=== PATIENT | female | born 1965 | race Caucasian/White ===

== ENCOUNTER 2019-02-27 11:02 | Inpatient (IN) | payer MEDICAID, OTHER ==
[~2019-02-27] VITALS: Ht 149.9 cm; Wt 90.5 kg
[2019-02-27 11:41] LABS: Urine Bacteria NONE SEEN /hpf (None Seen); Urine Blood 2+ /uL (Negative); Urine Budding Yeast OCCASIONAL /hpf (None Seen); Urine Specific Gravity 1.036 (1.001-1.035); Urine WBC 12 /hpf (0 - 5)
[2019-02-27] MEDS ORDERED: SODIUM CHLORIDE 0.9% 1,000 ML IVB ONE (14:12)
[2019-02-27] MEDS ORDERED: KETOROLAC TROMETH 30 MG/ML 1ML VIAL IV ONE (14:15)
[2019-02-27] MEDS ORDERED: ONDANSETRON HCL 4 MG/2 ML VIAL IV ONE (14:15)
[2019-02-27] MEDS ORDERED: MORPHINE SULFATE 4 MG/ML SYR/VIAL IV ONE (14:15)
[2019-02-27 15:16] LABS: Basophils # (auto) 0 uL; Basophils % (auto) 0.2 % (0.0-2.0); Eosinophils # (auto) 0.1 uL; Eosinophils % (auto) 0.5 % (0.0-7.0); Hematocrit 40.4 % (36.0-46.0); Hemoglobin 13.5 g/dL (12.2-16.2); Lymphocytes # (auto) 1.9 uL; Mean Corpuscular Hemoglobin 30.6 pg (28.0-32.0); Mean Corpuscular Hgb Conc. 33.4 g/dL (32.0-36.0); Mean Corpuscular Volume 91.8 fL (80.0-100.0); Monocytes # (auto) 0.8 uL; Neutrophils % (auto) 76.3 % (37.0-80.0); Nucleated Red Blood Cells % 0.2 %; Platelet Count (auto) 270 10^3/uL (140-450); Red Blood Cells 4.41 10^6/uL (4.0-5.20); Red Cell Distribution Width 14.9 % (11.8-14.3); White Blood Cell 11.7 10^3/uL (4.4-10.8)
[2019-02-27 15:17] LABS: Albumin 3.5 g/dL (3.4-5.0); Calcium 8.6 mg/dL (8.5-10.1); Potassium 4.2 mmol/L (3.5-5.1)
[2019-02-27 15:21] LABS: BUN/Creatinine Ratio 19.8; Bilirubin, Total 0.7 mg/dL (0.2-1.0); Total Protein 7.6 g/dL (6.4-8.2)
[2019-02-27] MEDS ORDERED: ACETAMINOPHEN 500 MG TAB PO PRN (16:30)
[2019-02-27] MEDS ORDERED: ONDANSETRON HCL 4 MG/2 ML VIAL IV PRN (16:30)
[2019-02-27] MEDS ORDERED: MORPHINE SULF INJ 2 MG/ML SYRINGE 1ML IV PRN (16:30)
[2019-02-27] MEDS ORDERED: NITROGLYCERIN 0.4 MG SL TAB SL PRN (16:30)
[2019-02-27] MEDS: MORPHINE SULF INJ 2 MG/ML SYRINGE 1ML IV PRN ×2 (16:36→20:30)
[2019-02-27] MEDS: SODIUM CHLORIDE 0.9% 1,000 ML IV SCH ×2 (16:41→18:47)
--- NOTE | 2019-02-27 17:30 | NUR ---
Telemetry admit from ER [facility] admitted to Telemetry unit after report received from TRIPP Sanz. Patient oriented to MARIJA ROBERTSON RN primary RN, unit, room, bed, and unit policies regarding patient care and visiting hours. Patient now on continuous telemetry monitoring, tele box # [id number]. Patient weighed by bedscale and encouraged to call if they need something. All questions and concerns addressed, patient verbalized understanding.
[2019-02-27 17:59] VITALS: BP 134/84
[2019-02-27] MEDS: TAMSULOSIN HYDROCHLORIDE 0.4 MG CAP PO SCH (18:47)
--- NOTE | 2019-02-27 18:56 | NUR ---
Closing Shift Note Patient is resting in bed with eyes closed. No distress noted. Will give report and endorse care to the metal burrer RN.
[2019-02-27] MEDS ORDERED: CLOP75TA28 PO (19:04)
[2019-02-27] MEDS ORDERED: ASPI-231 PO (19:04)
[2019-02-27] MEDS ORDERED: CARV3.1240 PO (19:04)
--- NOTE | 2019-02-27 19:50 | NUR ---
Opening Shift Note Assumed care of patient, lying in bed, awake and alert, oriented x 4, clear speech, follows direction. On room air with even and unlabored respirations, no S/S of distress or SOB. Patient reports LBM "5 days ago." Patient denies any problems voiding no burning, reports hematuria. IV to right AC 20g intact and patent, infusing NS 0.9% at 125mL/hr. Patient independently turns in bed ambulates with steady gait. Bed is in low low locked position with side rails up x 2 and call light within reach. Instructed on POC and to call for assist PRN, will continue to monitor for changes Q1hr and PRN.
--- NOTE | 2019-02-27 20:00 | NUR ---
Paged Jose SUNSHINE RE: LBM patient reports LBM 5 days ago. Awaiting call back, will continue care.
--- NOTE | 2019-02-27 20:13 | NUR ---
Received call back from Jose SUNSHINE Updated on patient status. New order received, read back and verified order, will carry out and continue care.
[2019-02-27] MEDS: CARVEDILOL 3.125 MG TAB PO SCH (20:28)
[2019-02-27] MEDS: ATORVASTATIN 20 MG TAB PO SCH (20:28)
[2019-02-27 22:00] VITALS: BP 138/85
[2019-02-28] MEDS: MORPHINE SULF INJ 2 MG/ML SYRINGE 1ML IV PRN ×2 (04:09→16:16)
[2019-02-28 05:30] VITALS: BP 153/88
[2019-02-28 06:30] LABS: Basophils # (auto) 0 uL; Basophils % (auto) 0.3 % (0.0-2.0); Eosinophils # (auto) 0 uL; Eosinophils % (auto) 0.6 % (0.0-7.0); Hematocrit 35.6 % (36.0-46.0); Lymphocytes # (auto) 1.8 uL; Lymphocytes % (auto) 27.2 % (10.0-50.0); Mean Corpuscular Hemoglobin 31.1 pg (28.0-32.0); Mean Corpuscular Hgb Conc. 33.6 g/dL (32.0-36.0); Mean Corpuscular Volume 92.5 fL (80.0-100.0); Monocytes # (auto) 0.5 uL; Monocytes % (auto) 6.7 % (0.0-12.0); Neutrophils # (auto) 4.4 uL; Neutrophils % (auto) 65.2 % (37.0-80.0); Nucleated Red Blood Cells % 0.1 %; Platelet Count (auto) 239 10^3/uL (140-450); Potassium 4.2 mmol/L (3.5-5.1); Red Blood Cells 3.85 10^6/uL (4.0-5.20); Red Cell Distribution Width 15.4 % (11.8-14.3); White Blood Cell 6.8 10^3/uL (4.4-10.8)
[2019-02-28 06:33] LABS: Cholesterol 458 mg/dL (< 200); HDL Cholesterol 37 mg/dL (40-59); Triglycerides 856 mg/dL (< 150)
--- NOTE | 2019-02-28 06:54 | NUR ---
Closing Note patient awake resting in bed on room air with even and unlabored respirations, no s/s of distress. IV intact and patent infusing NS at 125mL/hr. Bed low locked position with side rails up x 2 and call light within reach.
--- NOTE | 2019-02-28 07:30 | NUR ---
Opening Shift Note Assuming care of patient at this time. Patient is awake and alert. Patient is complaining of pain. Will medicate per doctor's orders. Patient shows no signs or symptoms of distress or shortness of breath. Bed is locked and lowered with side rails up x2. Instructed patient on the plan of care for today and to call for assistance as needed. Call light within reach. Will continue to round hourly and as needed.
[2019-02-28 09:00] VITALS: BP 145/86
[2019-02-28] MEDS: SODIUM CHLORIDE 0.9% 1,000 ML IV SCH ×2 (10:35→16:16)
[2019-02-28] MEDS: cefTRIAXone 1GM/50ML D5W 50 ML IV SCH (10:35)
[2019-02-28] MEDS: CLOPIDOGREL BISULFATE 75 MG TAB PO SCH (10:36)
[2019-02-28] MEDS: DOCUSATE SOD 100 MG CAP PO SCH ×2 (10:36→21:50)
[2019-02-28] MEDS: ASPirin 81 mg TAB PO SCH (10:36)
[2019-02-28] MEDS: FAMOTIDINE 20 MG TAB PO SCH (10:36)
[2019-02-28] MEDS: CARVEDILOL 3.125 MG TAB PO SCH ×2 (10:37→21:50)
[2019-02-28 13:00] VITALS: BP 120/66
[2019-02-28] MEDS ORDERED: MANNITOL FTV 25% 12.5 GM/50 ML 50 ML IV ONE (13:45)
[2019-02-28 17:00] VITALS: BP 141/69
[2019-02-28] MEDS: TAMSULOSIN HYDROCHLORIDE 0.4 MG CAP PO SCH (18:19)
[2019-02-28] MEDS: HYDROcodone-ACET 5/325MG TAB PO PRN (18:19)
--- NOTE | 2019-02-28 18:22 | NUR ---
Re: Urine Strain/Output Patient has had 300 ml of urine out since straining order. Urine has been strained. No stones noted at this time.
--- NOTE | 2019-02-28 19:25 | NUR ---
Pain Patient has been complaining of pain unrelieved by morphine and norco, 02/23 to abdomen and back area. Notified JONG Benjamin. New orders given. Will input and carryout.
--- NOTE | 2019-02-28 19:27 | NUR ---
Closing Shift Note Patient resting in be, complaining of pain 02/23. New order for pain medication needs to be verified. shift superintendent RN aware. Will endorse care.
--- NOTE | 2019-02-28 19:40 | NUR ---
Opening Shift Note Assumed care of patient, lying in bed, awake and alert, oriented x 4, clear speech, follows direction. On room air with even and unlabored respirations, no S/S of distress or SOB. Patient denies any problems voiding no burning. IV to right AC 20g intact and patent, infusing NS 0.9% at 125mL/hr. Patient independently turns in bed ambulates with steady gait. Bed is in low low locked position with side rails up x 2 and call light within reach. Instructed on POC to strain all urine, patient verbalized understanding. Instructed to call for assist PRN, will continue to monitor for changes Q1hr and PRN.
[2019-02-28] MEDS: HYDROmorphone HCL 2 MG/ML VL IV PRN (19:44)
[2019-02-28] MEDS: ATORVASTATIN 20 MG TAB PO SCH (21:50)
[2019-02-28 22:00] VITALS: BP 120/70
[2019-03-01] MEDS: SODIUM CHLORIDE 0.9% 1,000 ML IV SCH ×3 (00:35→16:16)
[2019-03-01] MEDS: HYDROmorphone HCL 2 MG/ML VL IV PRN ×2 (00:40→05:54)
[2019-03-01 05:00] VITALS: BP 104/67
--- NOTE | 2019-03-01 07:04 | NUR ---
Closing Note patient resting in bed on room air with even and unlabored respirations, no s/s of distress. IV intact and patent infusing NS at 125mL/hr. Bed low locked position with side rails up x 2 and call light within reach. endorsed care to day shift RN.
[2019-03-01 09:00] VITALS: BP 146/88
[2019-03-01] MEDS: CARVEDILOL 3.125 MG TAB PO SCH (10:03)
[2019-03-01] MEDS: CLOPIDOGREL BISULFATE 75 MG TAB PO SCH (10:03)
[2019-03-01] MEDS: HYDROcodone-ACET 5/325MG TAB PO PRN (10:03)
[2019-03-01] MEDS: cefTRIAXone 1GM/50ML D5W 50 ML IV SCH (10:03)
[2019-03-01] MEDS: DOCUSATE SOD 100 MG CAP PO SCH (10:03)
[2019-03-01] MEDS: ASPirin 81 mg TAB PO SCH (10:03)
[2019-03-01] MEDS: FAMOTIDINE 20 MG TAB PO SCH (10:04)
[2019-03-01] MEDS ORDERED: DOCU100C8 PO (12:13)
[2019-03-01] MEDS ORDERED: NITR-39 PO (12:13)
[2019-03-01] MEDS ORDERED: TAM04C PO (12:13)
[2019-03-01] MEDS ORDERED: ATOR20TA50 PO (12:13)
[2019-03-01 12:48] VITALS: BP 146/88
--- NOTE | 2019-03-01 14:30 | NUR ---
Discharge Discharge instructions given as ordered. Encourage to follow up with PMD as instructed. Patient does not currently have a primary doctor, patient does not want help finding a primary care doctor. Patient will follow-up with her sister's primary care provider. Gave patient information on following up with urologist. Patient states that she will either follow-up with Dr. Rich or find her own urologist. All questions and concerns addressed. Patient verbalized understanding. IV removed with catheter intact, pressure dressing applied. Telemetry unit returned to ICU. Patient taken to vehicle with all personal belongings, accompanied by staff and family member. No distress noted at time of departure.
== END 2019-03-01 14:30 | disposition home or self-care (01) | DRG 465 ==
LOC: ER 11:09 → TELE 11:10 → TELE-WESTW 18:03
PROVIDERS: ADMIT Nurse Practitioner Acute Care; ATTEND Internal Medicine Nephrology
DX: N13.2 Hydronephrosis with renal and ureteral calculous obstruction (principal); I50.22 Chronic systolic (congestive) heart failure; E66.9 Obesity, unspecified; I25.10 Atherosclerotic heart disease of native coronary artery without angina pectoris; E78.00 Pure hypercholesterolemia, unspecified; K43.9 Ventral hernia without obstruction or gangrene; F17.210 Nicotine dependence, cigarettes, uncomplicated; E78.5 Hyperlipidemia, unspecified; K57.30 Diverticulosis of large intestine without perforation or abscess without bleeding; Z82.49 Family history of ischemic heart disease and other diseases of the circulatory system; I25.2 Old myocardial infarction; Z95.1 Presence of aortocoronary bypass graft; Z95.5 Presence of coronary angioplasty implant and graft; Z68.41 Body mass index [BMI] 40.0-44.9, adult; Z90.710 Acquired absence of both cervix and uterus; Z87.442 Personal history of urinary calculi
CPT/HCPCS: 36415; 74176; 80048; 80053; 80061; 81001; 85025; 87086; 94761; 96361; 96374; 96375; 96376; G0378; J0696; J1885; J2405

== ENCOUNTER 2019-04-02 16:21 | Emergency (ER) | payer SELFPAY ==
[~2019-04-02] VITALS: Ht 149.9 cm; Wt 86.6 kg
[~2019-04-02 16:21] MED LIST: ASPI-231 PO; ATOR20TA50 PO; CARV3.1240 PO; CLOP75TA28 PO; DOCU100C8 PO; NITR-39 PO; TAM04C PO
[2019-04-02] MEDS ORDERED: SODIUM CHLORIDE 0.9% 1,000 ML IV ONE (16:45)
[2019-04-02] MEDS ORDERED: FLEET ENEMA(ADULT) 135 ML PR ONE ×2 (18:32→19:15)
[2019-04-02 19:56] VITALS: BP 138/85
== END 2019-04-02 20:18 | disposition home or self-care (01) ==
LOC: ER 16:37
DX: K56.41 Fecal impaction (principal); R30.0 Dysuria; I25.2 Old myocardial infarction; F17.210 Nicotine dependence, cigarettes, uncomplicated; Z88.6 Allergy status to analgesic agent
CPT/HCPCS: 74176; 99284; J7030

== ENCOUNTER 2020-03-20 16:07 | Inpatient (IN) | payer MEDICAID, OTHER ==
[~2020-03-20] VITALS: Ht 149.9 cm; Wt 92.9 kg
[2020-03-20 16:54] LABS: Basophils # (auto) 0 10 ^3/uL (0-0.2); Basophils % (auto) 0.4 % (0.0-2.0); Eosinophils # (auto) 0.1 10 ^3/uL (0-0.8); Eosinophils % (auto) 1.1 % (0.0-7.0); Hematocrit 37.5 % (36.0-46.0); Hemoglobin 12.6 g/dL (12.2-16.2); Lymphocytes % (auto) 29.9 % (10.0-50.0); Mean Corpuscular Hemoglobin 30.4 pg (28.0-32.0); Mean Corpuscular Hgb Conc. 33.6 g/dL (32.0-36.0); Mean Corpuscular Volume 90.5 fL (80.0-100.0); Monocytes # (auto) 0.4 10 ^3/uL (0-1.3); Monocytes % (auto) 5.7 % (0.0-12.0); Neutrophils # (auto) 4.3 10 ^3/uL (1.6-8.6); Neutrophils % (auto) 62.9 % (37.0-80.0); Platelet Count (auto) 285 10^3/uL (140-450); Red Blood Cells 4.14 10^6/uL (4.0-5.20); Red Cell Distribution Width 13.9 % (11.8-14.3); White Blood Cell 6.8 10^3/uL (4.4-10.8)
[2020-03-20 17:13] LABS: INR 1.18 (0.9-1.15); Partial Thromboplastin Time 35.8 sec (23.0-31.2)
[2020-03-20 17:15] LABS: Albumin 3.7 g/dL (3.4-5.0); Anion Gap 6 (5-15); Blood Urea Nitrogen 21 mg/dL (7-18); Calcium 8.8 mg/dL (8.5-10.1); Carbon Dioxide 26 mmol/L (21-32); Chloride 105 mmol/L (98-107); Glucose 155 mg/dL (74-106); Magnesium 2.2 mg/dL (1.6-2.6); Potassium 3.7 mmol/L (3.5-5.1); Sodium 137 mmol/L (136-145)
[2020-03-20 17:22] LABS: Alanine Aminotransferase 42 U/L (13-56); Alkaline Phosphatase 76 U/L (45-117); Aspartate Aminotransferase 36 U/L (15-37); BUN/Creatinine Ratio 27.6; Bilirubin, Total 0.6 mg/dL (0.2-1.0); GFR African American 102 mL/min; GFR Non-African American 85 mL/min; Total Protein 7.7 g/dL (6.4-8.2)
[2020-03-20] MEDS ORDERED: ASPirin 81 mg TAB PO ONE (23:30)
[2020-03-21] MEDS ORDERED: ONDANSETRON HCL 4 MG/2 ML VIAL IV ONE ×2 (02:45)
[2020-03-21] MEDS ORDERED: NITROGLYCERIN 0.4MG/HR TOPICAL PATCH TD ONE (02:45)
[2020-03-21] MEDS ORDERED: MORPHINE SULFATE 10 MG/ML INJ 1ML SDV IV ONE (02:45)
[2020-03-21] MEDS ORDERED: NITROGLYCERIN 0.4 MG SL TAB SL ONE ×2 (02:45→02:50)
[2020-03-21] MEDS ORDERED: MORPHINE SULFATE 4 MG/ML SYR/VIAL IV ONE (02:45)
[2020-03-21] MEDS ORDERED: ONDANSETRON HCL 4 MG/2 ML VIAL IV PRN (04:15)
[2020-03-21] MEDS ORDERED: TEMAZEPAM 15 MG CAP PO PRN (04:15)
[2020-03-21] MEDS ORDERED: ACETAMINOPHEN 325 MG TAB PO PRN (04:15)
[2020-03-21] MEDS ORDERED: MORPHINE SULF INJ 2 MG/ML SYRINGE 1ML IV PRN (04:45)
--- NOTE | 2020-03-21 08:27 | NUR ---
Telemetry admit from ER [facility] admitted to Telemetry unit after SBAR received. Patient oriented to MARIJA ROBERTSON, RN primary RN, unit, room, bed, and unit policies regarding patient care and visiting hours. Patient weighed by bedscale and encouraged to call if they need something. All questions and concerns addressed, patient verbalized understanding.
[2020-03-21 08:47] VITALS: BP 121/57
[2020-03-21] MEDS ORDERED: AMLO5TAB15 PO (09:10)
[2020-03-21] MEDS ORDERED: ISOS30TA4 PO (09:10)
[2020-03-21] MEDS ORDERED: RIV20T PO (09:10)
[2020-03-21 09:11] VITALS: BP 121/87
[2020-03-21] MEDS ORDERED: ADENOSINE 72 MG in GIVE UN-DILUTED 0 ML IV STA (09:21)
--- NOTE | 2020-03-21 09:32 | NUR ---
Pain Patient is complaining of pain to her back at this time, 01/24. Patient is refusing ordered Tylenol at this time. Patient states, "that won't help me." Will notify MD assigned to patient about patient's pain.
[2020-03-21] MEDS ORDERED: ENOXAPARIN SOD 30 MG/0.3 ML SYRINGE SC SCH (10:00)
[2020-03-21] MEDS ORDERED: FAMOTIDINE 20 MG TAB PO SCH (10:00)
[2020-03-21] MEDS ORDERED: ENOXAPARIN SOD 40 MG/0.4 ML SYRINGE SC SCH (10:00)
[2020-03-21] MEDS: NITROGLYCERIN 0.4 MG SL TAB SL PRN ×2 (12:03→14:20)
--- NOTE | 2020-03-21 12:08 | NUR ---
CHEST PAIN INFORMED PRIMARY RN MARIJA OF PTS CHEST PAIN AFTER STRESS TEST AND THAT THE PT RECEIVED ONE DOSE OF NITRO THAT RELIEVED HER PAIN. I LET HER KNOW HER PT IS NOW IN RADIOLOGY AND WILL BE BACK UP TO HER ROOM SHORTLY.
[2020-03-21 12:43] VITALS: BP 140/98
[2020-03-21] MEDS: ISOSORBIDE MONONITRATE ER 60 MG TAB PO SCH (14:12)
[2020-03-21] MEDS: CLOPIDOGREL BISULFATE 75 MG TAB PO SCH (14:13)
[2020-03-21] MEDS: ASPirin 81 mg TAB PO SCH (14:13)
[2020-03-21] MEDS: FAMOTIDINE 20 MG TAB PO SCH ×2 (14:13→21:28)
[2020-03-21] MEDS: CARVEDILOL 3.125 MG TAB PO SCH ×2 (14:14→21:32)
[2020-03-21] MEDS: MORPHINE SULF INJ 2 MG/ML SYRINGE 1ML IV PRN ×2 (14:14→21:25)
--- NOTE | 2020-03-21 14:20 | NUR ---
Chest Pain Patient complaining of chest pain that is unrelieved by morphine. Patient is requesting nitro. Administered according to MD orders. Before Nitro: 168/102, pulse 88. After nitro: 163/95, pulse 84.
[2020-03-21 16:28] VITALS: BP 115/77
--- NOTE | 2020-03-21 19:26 | NUR ---
Closing Shift Note Patient resting in bed. No distress noted. Report given. Will endorse care to the avid editor RN.
--- NOTE | 2020-03-21 19:30 | NUR ---
Opening Shift Note Assumed care of patient, awake and alert. No S/S of distress/SOB noted. Instructed on POC and to call for assist PRN. Bed is in lowest locked position with bedrails up x2 and call light is within reach.
[2020-03-21] MEDS: LORazepam 2MG/ML-1ML VIAL IV PRN (19:42)
[2020-03-21] MEDS: ATORVASTATIN 20 MG TAB PO SCH (21:29)
[2020-03-21 22:27] VITALS: BP 115/77
--- NOTE | 2020-03-22 | NUR ---
Hospitalist paged: Hospitalist paged at this time. Patient requesting norco medication for pain as morphine did little to assist with her headache. Waiting for hospitalist to call back.
--- NOTE | 2020-03-22 00:16 | NUR ---
Hospitalist called back: Hospitalist Nico called back. Updated about patients request for [place] for headache. New orders received. To place orders.
[2020-03-22] MEDS: HYDROcodone-ACET 5/325MG TAB PO PRN ×3 (00:27→22:44)
[2020-03-22] MEDS: MORPHINE SULF INJ 2 MG/ML SYRINGE 1ML IV PRN (03:55)
--- NOTE | 2020-03-22 04:00 | NUR ---
EKG: EKG DONE ORDERED. RESULTS PLACED IN CHART. PATIENT TOLERATED WELL. NO S/S OF DISTRESS NOTED.
[2020-03-22 05:30] VITALS: BP_SYST 144; BP_SYST 161; BP_DIAS 100; BP_DIAS 88
[2020-03-22 06:54] LABS: Basophils # (auto) 0 10 ^3/uL (0-0.2); Basophils % (auto) 0.2 % (0.0-2.0); Eosinophils # (auto) 0.1 10 ^3/uL (0-0.8); Eosinophils % (auto) 1.4 % (0.0-7.0); Hematocrit 36.4 % (36.0-46.0); Hemoglobin 12.5 g/dL (12.2-16.2); Lymphocytes # (auto) 2.8 10 ^3/uL (0.4-5.4); Mean Corpuscular Hemoglobin 31.1 pg (28.0-32.0); Mean Corpuscular Hgb Conc. 34.4 g/dL (32.0-36.0); Mean Corpuscular Volume 90.5 fL (80.0-100.0); Monocytes # (auto) 0.7 10 ^3/uL (0-1.3); Monocytes % (auto) 7.9 % (0.0-12.0); Neutrophils # (auto) 4.9 10 ^3/uL (1.6-8.6); Neutrophils % (auto) 57.5 % (37.0-80.0); Platelet Count (auto) 266 10^3/uL (140-450); Red Blood Cells 4.02 10^6/uL (4.0-5.20); Red Cell Distribution Width 13.8 % (11.8-14.3); White Blood Cell 8.5 10^3/uL (4.4-10.8)
[2020-03-22 07:04] LABS: INR 1.03 (0.9-1.15); Partial Thromboplastin Time 27.6 sec (23.0-31.2)
[2020-03-22 07:07] LABS: BUN/Creatinine Ratio 22.2; Calcium 9.1 mg/dL (8.5-10.1); Potassium 3.9 mmol/L (3.5-5.1)
--- NOTE | 2020-03-22 07:30 | NUR ---
Opening Shift Note Assuming care of patient at this time. Patient is awake and alert. Patient shows no signs or symptoms of distress or shortness of breath. Bed is locked and lowered with side rails up x2. Instructed patient on the plan of care for today and to call for assistance as needed. Call light within reach. Will continue to round hourly and as needed.
[2020-03-22 09:00] VITALS: BP 102/67
--- NOTE | 2020-03-22 09:00 | NUR ---
Consents Patient and daughter had additional questions, patient was re-educated on what was explained to her. Daughter on the phone at this time while consents were signed.
[2020-03-22] MEDS: CLOPIDOGREL BISULFATE 75 MG TAB PO SCH (09:45)
[2020-03-22] MEDS: ASPirin 81 mg TAB PO SCH (09:45)
[2020-03-22] MEDS: FAMOTIDINE 20 MG TAB PO SCH ×2 (10:00→22:45)
[2020-03-22] MEDS: CARVEDILOL 3.125 MG TAB PO SCH ×2 (10:00→22:44)
[2020-03-22] MEDS: ISOSORBIDE MONONITRATE ER 60 MG TAB PO SCH (10:00)
--- NOTE | 2020-03-22 10:08 | NUR ---
Patient off unit Patient taken to laborer general at this time.
[2020-03-22] MEDS ORDERED: LIDOCAINE 2%HCL (LOCAL ANESTH.) INJ 20ML MDV ONE (11:36)
[2020-03-22] MEDS ORDERED: IOHEXOL 350 MG/ML 100ML IJ ONE ×3 (11:36→13:14)
[2020-03-22] MEDS ORDERED: ANGIOMAX 250 MG VIAL IV ONE ×2 (11:39→12:55)
[2020-03-22] MEDS ORDERED: VERAPAMIL 2.5MG/ML INJ 2ML VIAL IV ONE (11:39)
[2020-03-22] MEDS ORDERED: HEPARIN SODIUM (PORCINE) 5000 UNITS/ML 1ML VIAL ONE (11:39)
[2020-03-22] MEDS ORDERED: fentaNYL CITRATE 100 MCG/2 ML VL ONE ×2 (11:40→12:21)
[2020-03-22] MEDS ORDERED: SODIUM CHL 0.9% 50 ML ONE ×2 (11:40→12:55)
[2020-03-22] MEDS ORDERED: MIDAZOLAM HCL 1MG/1ML-2 ML VIAL ONE ×2 (11:40→12:21)
[2020-03-22] MEDS ORDERED: diphenhdrAMINE HCL 50 MG/1 ML VL ONE (12:09)
[2020-03-22] MEDS ORDERED: METOPROLOL TARTRATE 1MG/1ML-5ML VIAL IV ONE (12:14)
[2020-03-22] MEDS: SODIUM CHLOR 0.9% PF (SALINE LOCK) 10ML VIAL/SYR IV SCH ×2 (14:00→22:42)
[2020-03-22] MEDS ORDERED: SODIUM CHLORIDE 0.9% 1,000 ML IV SCH (14:00)
--- NOTE | 2020-03-22 14:49 | NUR ---
MD Leyva at bedside Patient states "I cannot pee on a bedpan, I need to get up to walk to the bathroom". MD informed patient of risks and educated patient on reasons why she cannot get out of bed to ambulate at this time, patient verbalized understanding and is stating she still has the urge to urinate. Order for Diaz catheter received from MD Leyva at this time.
--- NOTE | 2020-03-22 15:01 | NUR ---
Diaz catheter insertion Patient assessed and determined to be in need of Diaz catheter. Order obtained from MD Leyva. Patient educated on catheter and reason for insertion. All questions answered. Diaz catheter 16 gauge [place] inserted with clean sterile technique by TRIPP Grant. Patient tolerated well.
--- NOTE | 2020-03-22 15:26 | NUR ---
MD Leyva currently updating family member, Cynthia, on patient status and procedure outcome via telephone
--- NOTE | 2020-03-22 15:30 | NUR ---
Patient on unit Patient back on unit. Patient educated on importance to remain flat in bed until instructed up time. Patient verbalizes understanding. Will continue to monitor site for bleeding.
[2020-03-22 17:00] VITALS: BP 141/89
--- NOTE | 2020-03-22 17:00 | NUR ---
Bleeding Upon this RN returning from lunch, patient was found with TRIPP Kaur in room. Patient has been bleeding from groin access site. New gauze applied to groin at this time with new tegaderm. After applying manual pressure for approximately 15 minutes, there is some minimal bleeding to area. 10 pound weight applied to groin site at this time. DEVIKA Leal, states she found patient attempting to get up while holding side rail. Patient re-educated on the importance of not getting up until her up time. Patient notified that she cannot get up until 1110 now. Will continue to assess site for bleeding. Patient medicated for back pain at this time.
--- NOTE | 2020-03-22 18:19 | NUR ---
AT APPROXIMATELY 1700 I ENTERED THE ROOM TO FIND PATIENT WITH HER UPPER BODY TURNED TOWARDS THE RIGHT SIDE GRIPPING BOTH OF HER HANDS TO THE RAIL AND IMMEDIATELY WENT TO BARBARA BOUCHER WHO WAS COVERING TRIPP DUTTON TO TEND TO THE BLEEDING SITE
[2020-03-22] MEDS: LORazepam 2MG/ML-1ML VIAL IV PRN (18:52)
--- NOTE | 2020-03-22 19:34 | NUR ---
Closing Shift Note Patient resting in bed. Report given. Will endorse care to the waiter/waitress buffet care RN.
--- NOTE | 2020-03-22 19:40 | NUR ---
RIGHT GROIN CATH SITE ASSESSED AT THIS TIME. DRSG IS WITH MOD AMOUNT SANG DRAINAGE. NO ACTIVE BLEEDING OR HEMATOMA NOTED AT THIS TIME. WILL CONTINUE TO MONITOR CLOSELY. PT ENCOURAGED KEEP LYING FLAT AND CALL FOR ASSIST PRN. BED IS LOW, WHEELS ARE LOCKED , AND CALL LIGHT IS WITH IN REACH.
[2020-03-22 21:00] VITALS: BP 124/80
[2020-03-22] MEDS: ATORVASTATIN 20 MG TAB PO SCH (22:44)
[2020-03-23 05:00] VITALS: BP 122/80
[2020-03-23] MEDS: HYDROcodone-ACET 5/325MG TAB PO PRN (05:20)
[2020-03-23] MEDS: SODIUM CHLOR 0.9% PF (SALINE LOCK) 10ML VIAL/SYR IV SCH ×2 (06:22→13:52)
--- NOTE | 2020-03-23 07:34 | NUR ---
Opening Shift Note Assuming care of patient from noc shift rn. Patient is awake and alert, anxious and verbalized readiness to be discharged and also wants douglass catheter out. Reports 8/10 back pain, will medicate per eMAR. No SOB noted at this time. Plan of care discussed Bed is locked and lowered with side rails up x2. Encouraged to call for assistance as needed. Call light within reach. Will continue to monitor q1hr and prn.
[2020-03-23 08:00] VITALS: BP 118/66
[2020-03-23 09:00] VITALS: BP 118/66
[2020-03-23] MEDS: ISOSORBIDE MONONITRATE ER 60 MG TAB PO SCH (09:13)
[2020-03-23] MEDS: CARVEDILOL 3.125 MG TAB PO SCH (09:15)
[2020-03-23] MEDS: ASPirin 81 mg TAB PO SCH (09:16)
[2020-03-23] MEDS: FAMOTIDINE 20 MG TAB PO SCH (09:16)
[2020-03-23] MEDS: CLOPIDOGREL BISULFATE 75 MG TAB PO SCH (09:16)
--- NOTE | 2020-03-23 09:22 | NUR ---
Dr. Geller at bedside, discussed discharge plan with patient. Also ordered to discontinue douglass catheter. Will continue to monitor for changes.
[2020-03-23] MEDS: MORPHINE SULF INJ 2 MG/ML SYRINGE 1ML IV PRN (09:35)
--- NOTE | 2020-03-23 12:58 | NUR ---
PATIENT'S PHARMACY UPDATED PER MD'S ORDER
[2020-03-23 13:00] VITALS: BP 103/59
[2020-03-23] MEDS ORDERED: ASPI-231 PO (13:10)
[2020-03-23] MEDS ORDERED: CLOP75TA28 PO (13:10)
[2020-03-23 14:08] VITALS: BP 103/59
--- NOTE | 2020-03-23 15:15 | NUR ---
PATIENT DISCHARGED PER MD'S ORDER. A/O AT THIS TIME, NO S/S DISTRESS. PATIENT VERBALIZED UNDERSTANDING OF DISCHARGE SUMMARY AND FOLLOW UP. UNABLE TO MAKE APPOINTMENT DUE TO WEEKEND. PATIENT INSTRUCTED TO CALL ON WEDNESDAY DISCHARGE INFORMATION FAXED TO SUPPLIER DIVERSITY DIRECTOR, DR. NIX. UNABLE TO FIND FAX NUMBER FOR PCP. PATIENT VERBALIZED SHE WOULD SEND COPIES TO PCP. IV DISCONTINUED AND TELE BOX RETURNED TO ICU.
== END 2020-03-23 15:15 | disposition home or self-care (01) | DRG 175 ==
LOC: ER 16:07 → TELE 16:08 → TELE-EAST 03-21 08:42
PROVIDERS: ADMIT Nurse Practitioner; ATTEND Internal Medicine Nephrology
PROC: 027137Z Dilation of Coronary Artery, Two Arteries with Four or More Drug-eluting Intraluminal Devices, Percutaneous Approach (ICD-10-PCS; principal; 2020-03-22)
PROC: 4A033BC Measurement of Arterial Pressure, Coronary, Percutaneous Approach (ICD-10-PCS; 2020-03-22)
PROC: 4A023N7 Measurement of Cardiac Sampling and Pressure, Left Heart, Percutaneous Approach (ICD-10-PCS; 2020-03-22)
PROC: B2111ZZ Fluoroscopy of Multiple Coronary Arteries using Low Osmolar Contrast (ICD-10-PCS; 2020-03-22)
PROC: B2151ZZ Fluoroscopy of Left Heart using Low Osmolar Contrast (ICD-10-PCS; 2020-03-22)
DX: T82.855A Stenosis of coronary artery stent, initial encounter (principal); E78.5 Hyperlipidemia, unspecified; E66.01 Morbid (severe) obesity due to excess calories; M79.18 Myalgia, other site; I50.43 Acute on chronic combined systolic (congestive) and diastolic (congestive) heart failure; Y84.0 Cardiac catheterization as the cause of abnormal reaction of the patient, or of later complication, without mention of misadventure at the time of the procedure; F17.210 Nicotine dependence, cigarettes, uncomplicated; I11.0 Hypertensive heart disease with heart failure; I25.110 Atherosclerotic heart disease of native coronary artery with unstable angina pectoris; M19.90 Unspecified osteoarthritis, unspecified site; Z87.442 Personal history of urinary calculi; Z68.41 Body mass index [BMI] 40.0-44.9, adult; Z88.8 Allergy status to other drugs, medicaments and biological substances; I25.2 Old myocardial infarction; Z90.710 Acquired absence of both cervix and uterus; Z95.1 Presence of aortocoronary bypass graft; Z95.5 Presence of coronary angioplasty implant and graft; Z82.49 Family history of ischemic heart disease and other diseases of the circulatory system; Y92.89 Other specified places as the place of occurrence of the external cause
CPT/HCPCS: 36415; 71046; 78452; 80048; 80053; 82565; 83735; 83880; 84484; 85025; 85610; 85730; 87081; 92928; 92929; 93005; 93017; 93306; 93458; 93571; 96365; 96375; 99152; 99153; C1874; G0378; J0153; J2250; J2405